=== PATIENT | female | born 1945 | race Caucasian/White ===

== ENCOUNTER 2022-07-13 15:15 | Emergency (ER) | payer OTHER, SELFPAY ==
[2022-07-13 15:46] VITALS: BP 146/68; PULSE 83; RESP 16; TEMP 36.8; O2SAT 98
--- NOTE | 2022-07-13 17:57 | DI.RAD.S_ITS ---
PROCEDURE: XR LUMBAR SPINE 2-3V INDICATIONS: rt sciatica TECHNIQUE: 3 views of the lumbar spine were acquired. COMPARISON: None. FINDINGS: Bones: 5 [id number] vertebrae are present. Minimal scoliosis. Exaggerated lumbar spine lordosis. There is minimal anterolisthesis of L4 on L5 measuring at 0.3 cm. There is multilevel loss of intervertebral disc space height. There is lower lumbar spine facet joint hypertrophy. There is lumbar spine osteophytosis.. No vertebral body compression fractures. No suspicious bony lesions. Soft tissues: Overlying bowel gas pattern is normal. No suspicious soft tissue calcifications. IMPRESSION: No compression fracture. Moderate to severe degenerative change in DDD. Dictated by: Crow Becerra M.D. on 07/13/2022 at 19:01 Approved by: Crow Becerra M.D. on 07/13/2022 at 19:02
--- NOTE | 2022-07-13 18:00 | ED_ITS ---
HPI - Extremity Problem <KERRI Bauer - Last Filed: 07/13/22 20:12> General Chief complaint: Extremity Problem,Nontraumatic Stated complaint: RIGHT LEG PAIN X5 DAYS Time Seen by Provider: 07/13/22 16:08 History of Present Illness HPI Narrative: This is a 77-year-old female who presents to the emergency department complaining of 5 days of worsening right leg pain, she endorses a history of low back pain and injuries, also endorses a history of sciatica but states this is different, she does not feel any back pain currently and only feels right leg pain. Endorses that she was working in their boat a few days ago which could have exacerbated her history of low back pain but denies any back pain currently. She denies any weakness, sensation changes, states that it is painful to ambulate and her right leg hurts with all movements. She states that she has a history of hip replacement. She denies any weakness or incontinence, or recent illness with fever. Related Data Home Medications Medication Instructions Recorded Confirmed triamterene 75 1 tab PO DAILY 07/13/22 07/13/22 mg-hydrochlorothiazide 50 mg tablet Previous Rx's Medication Instructions Recorded ketorolac 10 mg tablet 10 mg PO TID PRN pain 5 days #14 07/13/22 tabs methocarbamol 500 mg tablet 500 mg PO BEDTIME #14 tabs 07/13/22 methylprednisolone 4 mg tablets in See Rx Instructions PO .COMPLEX 07/13/22 a dose pack (Medrol (Jaime)) #21 ea omeprazole 20 mg capsule,delayed 20 mg PO DAILY #14 caps 07/13/22 release Allergies Allergy/AdvReac Type Severity Reaction Status Date / Time codeine AdvReac Vomiting Verified 07/13/22 15:49 Review of Systems <KERRI Bauer - Last Filed: 07/13/22 20:12> Review of Systems Narrative: Review of systems is negative for acute abnormalities unless otherwise noted in HPI Patient History <KERRI Bauer - Last Filed: 07/13/22 20:12> Social History Smoking Status: Never smoker Smoking Status: Never smoker alcohol intake frequency: 0-2 drinks per day Substance Use Type: does not use Exam <KERRI Bauer - Last Filed: 07/13/22 20:12> Narrative Exam Narrative: Reviewed vitals signs and nursing notes. General: cooperative, comfortable, in no acute distress, well groomed HEENT: symmetrical facial expressions, moist mucous membranes Cardiovascular: regular rate and rhythm, no peripheral edema, warm extremities Respiratory: normal effort, able to speak in complete sentences, without wheezing, stridor, or abnormal breath sounds. No retractions or tachypnea. GI: abdomen soft, nontender to palpation, nondistended, without masses, rebound tenderness or exquisite tenderness with exam. MSK: moves all extremities, neurovascularly intact, no weakness, normal tone, low back pain is elicited with left leg raise, no tenderness along lumbar spine, ambulatory with steady gait Skin: brisk capillary refill, without pallor or erythema Neuro: normal speech and cognition, A&O x3, ambulatory, clear speech Psych: mental status is grossly normal, congruent mood, normal affect, pleasant and cooperative Initial Vital Signs Initial Vital Signs: Vital Signs Temperature 98.3 F 07/13/22 15:46 Pulse Rate 83 07/13/22 15:46 Respiratory Rate 16 07/13/22 15:46 Blood Pressure 146/68 H 07/13/22 15:46 Pulse Oximetry 98 07/13/22 15:46 Oxygen Delivery Method 07/13/22 15:46 <Rylee Mcpherson MD - Last Filed: 07/14/22 07:22> Initial Vital Signs Initial Vital Signs: Vital Signs Temperature 98.3 F 07/13/22 15:46 Pulse Rate 83 07/13/22 15:46 Respiratory Rate 16 07/13/22 15:46 Blood Pressure 146/68 H 07/13/22 15:46 Pulse Oximetry 98 07/13/22 15:46 Oxygen Delivery Method 07/13/22 15:46 Course <KERRI Bauer - Last Filed: 07/13/22 20:12> Orders Ordered: Discontinued Medications Acetaminophen (Acetaminophen 325 Mg Tablet) 975 mg PO NOW ONE Stop: 07/13/22 18:02 Last Admin: 07/13/22 18:20 Dose: 975 mg Documented By: ALEKSANDRA Ketorolac Tromethamine (Ketorolac 10 Mg Tablet) 10 mg PO NOW ONE Stop: 07/13/22 17:58 Last Admin: 07/13/22 18:20 Dose: 10 mg Documented By: ALEKSANDRA Pantoprazole Sodium (Pantoprazole Dr 20 Mg Tablet) 20 mg PO NOW ONE Stop: 07/13/22 18:00 Last Admin: 07/13/22 18:19 Dose: 20 mg Documented By: ALEKSANDRA Prednisone (Prednisone 20 Mg Tablet) 40 mg PO NOW ONE Stop: 07/13/22 17:58 Last Admin: 07/13/22 18:20 Dose: 40 mg Documented By: ALEKSANDRA Vital Signs Vital signs: Vital Signs - 8 hr 07/13/22 15:46 07/13/22 19:21 Temperature 98.3 F Pulse Rate 83 72 Respiratory Rate 16 16 Blood Pressure 146/68 H 138/86 Pulse Oximetry 98 97 Oxygen Delivery Method Room Air Room Air <Rylee Mcpherson MD - Last Filed: 07/14/22 07:22> Orders Ordered: Discontinued Medications Acetaminophen (Acetaminophen 325 Mg Tablet) 975 mg PO NOW ONE Stop: 07/13/22 18:02 Last Admin: 07/13/22 18:20 Dose: 975 mg Documented By: ALEKSANDRA Ketorolac Tromethamine (Ketorolac 10 Mg Tablet) 10 mg PO NOW ONE Stop: 07/13/22 17:58 Last Admin: 07/13/22 18:20 Dose: 10 mg Documented By: ALEKSANDRA Pantoprazole Sodium (Pantoprazole Dr 20 Mg Tablet) 20 mg PO NOW ONE Stop: 07/13/22 18:00 Last Admin: 07/13/22 18:19 Dose: 20 mg Documented By: ALEKSANDRA Prednisone (Prednisone 20 Mg Tablet) 40 mg PO NOW ONE Stop: 07/13/22 17:58 Last Admin: 07/13/22 18:20 Dose: 40 mg Documented By: ALEKSANDRA Vital Signs Vital signs: Vital Signs - 8 hr 07/13/22 15:46 07/13/22 19:21 Temperature 98.3 F Pulse Rate 83 72 Respiratory Rate 16 16 Blood Pressure 146/68 H 138/86 Pulse Oximetry 98 97 Oxygen Delivery Method Room Air Room Air MDM - Extremity (Nontraumatic) <KERRI Bauer - Last Filed: 07/13/22 20:12> Imaging Data lumbar xr: Radiologist's Impression: PROCEDURE:? XR LUMBAR SPINE 2-3V ? INDICATIONS:? rt sciatica ? TECHNIQUE:? 3 views of the lumbar spine were acquired.? ? COMPARISON:? None. ? FINDINGS:? ? Bones:? 5 [id number] vertebrae are present.? Minimal scoliosis.? Exaggerated lumbar spine lordosis.? There is minimal anterolisthesis of L4 on L5 measuring at 0.3 cm. There is multilevel loss of intervertebral disc space height.? There is lower lumbar spine facet joint hypertrophy.? There is lumbar spine osteophytosis..? No vertebral body compression fractures.? No suspicious bony lesions.? ? Soft tissues:? Overlying bowel gas pattern is normal.? No suspicious soft tissue calcifications.? ? ? IMPRESSION:? No compression fracture.? Moderate to severe degenerative change in DDD. ? ? Dictated by: Crow Becerra M.D. on 07/13/2022 at 19:01 ? ? Approved by: Crow Becerra M.D. on 07/13/2022 at 19:02 ? MDM Narrative Medical decision making narrative: This is a 77-year-old female presents to the emergency department for right leg pain which has been worsening over the last few days. She has a history of arthritis, states she has prior low back pain but states this is different than sciatica. The way that she discuss her symptoms, it sounded like sciatica to me so I ordered a lumbar spine x-ray to see if she degenerative disc disease. Her lumbar spine x-ray shows moderate degenerative disc disease and it appears that she has [id number], no compression fracture or suspicious bony lesions on x- ray. There is minimal anterolisthesis of L4 on L5 at 0.3 cm. Discussed these findings with the patient, encouraged her to follow-up at [facility] if this is ongoing. [place] is from [place] of town. Multiple etiologies of back pain considered including; Epidural abscess, cauda equina, mass occupying lesion, lumbar fracture, intra-abdominal pathology chronic neuropathic pain and other considered without evidence of this today. Patient is appropriate and amenable to discharge home. Vital signs are stable on repeat examination is unremarkable. Patient has been informed of results. Patient has been given strict return to ER precautions for any new or worsening symptoms. Patient understands to follow up closely with outpatient providers as instructed. Patient understands plan and agrees to discharge home. All questions and concerns answered at this time. Discharge Plan Departure Patient Disposition: Home Clinical Impression: Sciatic leg pain, Anterolisthesis of lumbar spine Degenerative disk disease Qualifiers: Spinal region: lumbar Qualified Code(s): M51.36 - Other intervertebral disc degeneration, lumbar region Instructions: Sciatica Activity Restrictions/Additional Instructions: *You have been diagnosed with sciatica which is likely from your low back. X- ray does not show any fracture. It appears that you have degenerative disc disease, this happens over time due to age and a good lifestyle. Please use ice or heat whichever is more comfortable, try to not over exert herself, you may take a muscle relaxer or half of 1 at nighttime to help you sleep if you feel difficulty resting. Please take Tylenol and ketorolac as needed for your pain, take this with food and water. I also wrote for you to take Prilosec in the morning before any medications, this will help prevent stomach pain while taking a steroid. Thank you for trusting us with your care, I hope you feel better soon, you may go to [facility] in the meantime if you have any worsening of your back pain. I recommend following up with your primary care provider about your musculoskeletal issues at home when you go back home. *What to do: *Please continue to take your regular medications as directed. [x ] New medication prescriptions sent to your pharmacy: [[facility] ] [ ] New medication written as a paper prescription [ ] No new medications given *Please follow up with your primary care provider in 2-3 days, call for an appointment. Let them know you were seen in the Emergency Department and that we asked that you be seen for follow-up. We will electronically transmit a record of today's note if your PCP is in our system *If you do not have a primary care provider please contact [phone] to establish care with one of the [facility] primary care providers. *Return to Emergency Department if you should have any new, worsening, or concerning symptoms, such as [fever greater than 101F, chills, worsening pain, persistent vomiting or other bothersome symptoms]. Prescriptions: New methocarbamol 500 mg tablet 500 mg PO BEDTIME Qty: 14 0RF methylprednisolone [Medrol (Jaime)] 4 mg tablets,dose pack See Rx Instructions .ROUTE .COMPLEX Qty: 21 0RF Rx Instructions: orally per package directions ketorolac 10 mg tablet 10 mg PO TID PRN (Reason: pain) 5 Days Qty: 14 0RF Rx Instructions: please take with food and water omeprazole 20 mg capsule,delayed release(DR/EC) 20 mg PO DAILY Qty: 14 0RF No Action triamterene-hydrochlorothiazid 75-50 mg tablet 1 tab PO DAILY Label Comments: TAKE ONE TABLET BY MOUTH ONE TIME DAILY Referrals: [facility] [Provider Group] Visit Report Forms: Patient Portal/API <yRlee Mcpherson MD - Last Filed: 07/14/22 07:22> [facility] I was immediately available in the department for consultation throughout this patient's visit. I agree with documentation as above. Rylee Mcpherson MD
[2022-07-13] MEDS: PANTOPRAZOLE DR 20 MG TABLET PO (18:19)
[2022-07-13] MEDS: KETOROLAC 10 MG TABLET PO (18:20)
[2022-07-13] MEDS: predniSONE 20 MG TABLET 40 MG PO (18:20)
[2022-07-13] MEDS: ACETAMINOPHEN 325 MG TABLET 975 MG PO (18:20)
[2022-07-13 19:21] VITALS: BP 138/86; PULSE 72; RESP 16; O2SAT 97
== END 2022-07-13 19:22 | disposition home or self-care (01) ==
PROVIDERS: Emergency Provider Nurse Practitioner Critical Care Medicine
DX: M51.17 Intervertebral disc disorders with radiculopathy, lumbosacral region (principal)
CPT/HCPCS: 72100; 99283